=== PATIENT | female | born 1955 | race Caucasian/White ===

== ENCOUNTER 2016-05-22 18:48 | Emergency (ER) | payer OTHER ==
[~2016-05-22] VITALS: Ht 157.5 cm; Wt 102.1 kg
[2016-05-22 18:52] VITALS: BP 126/82
[2016-05-22] MEDS ORDERED: ASPIRIN 81 MG TABLET CHEW PO ONE (19:00)
[2016-05-22 19:44] LABS: HEMOGLOBIN 14.2 g/dL (11.7-16.4)
[2016-05-22 19:54] LABS: BLOOD UREA NITROGEN 11 mg/dL (7-18)
[2016-05-22 19:58] LABS: IS PT STATUS REG ER OR PRE ER? YES
[2016-05-22] MEDS ORDERED: ATOR40TA78 PO (20:12)
[2016-05-22] MEDS ORDERED: ASPI-496 PO (20:12)
[2016-05-22] MEDS ORDERED: SOY1TABL2 PO (20:12)
[2016-05-22] MEDS ORDERED: FLUO20TA25 PO (20:12)
[2016-05-22] MEDS ORDERED: PANT40TA5 PO (20:12)
[2016-05-22] MEDS ORDERED: ASPIRIN 81 MG TABLET CHEW ONE (21:00)
== END 2016-05-22 22:17 | disposition home or self-care (01) ==
LOC: ED 21:44
DX: R07.89 Other chest pain (principal)
CPT/HCPCS: 36415; 71010; 80048; 82040; 83880; 84484; 85025; 85379; 93005

== ENCOUNTER → 2018-05-05 | Outpatient (CLI) | payer OTHER ==
[~2018-05-05] MED LIST: ASPI-496 PO; ATOR40TA78 PO; FENTANYL PF 100 MCG/2ML ONE; FLUMAZENIL 0.1 MG/1 ML, 5ML ONE; FLUO20TA25 PO; MIDAZOLAM 1 MG/ML, 5ML ONE; NALOXONE 1 MG/ML, 2ML ONE; PANT40TA5 PO; SOY1TABL2 PO
== END | disposition home or self-care (01) ==
LOC: RAD 07:41
PROVIDERS: ATTEND Orthopaedic Surgery
DX: M75.121 Complete rotator cuff tear or rupture of right shoulder, not specified as traumatic (principal); M75.122 Complete rotator cuff tear or rupture of left shoulder, not specified as traumatic; M75.52 Bursitis of left shoulder; M19.012 Primary osteoarthritis, left shoulder; M62.58 Muscle wasting and atrophy, not elsewhere classified, other site; Z87.891 Personal history of nicotine dependence
CPT/HCPCS: 73221; 99156; 99157; J2250; J3010; J2310

== ENCOUNTER → 2019-08-17 | Outpatient (CLI) | payer MEDICARE ==
[~2019-08-17] MED LIST changes: +ALEN70TA6 PO; +BIOTIN PO; +CHOL10003 PO; -FENTANYL PF 100 MCG/2ML ONE; -FLUMAZENIL 0.1 MG/1 ML, 5ML ONE; -MIDAZOLAM 1 MG/ML, 5ML ONE; -NALOXONE 1 MG/ML, 2ML ONE; +NAPR220C2 PO; +VITAMIN B12 PO; +VITAMIN B2 PO
== END | disposition home or self-care (01) ==
LOC: STAR 10:29
PROVIDERS: ATTEND Orthopaedic Surgery
DX: Z01.818 Encounter for other preprocedural examination (principal); M17.12 Unilateral primary osteoarthritis, left knee; I45.10 Unspecified right bundle-branch block; R94.31 Abnormal electrocardiogram [ECG] [EKG]
CPT/HCPCS: 87081; 87147; 93005

== ENCOUNTER 2019-08-24 06:54 | Observation (INO) | payer MEDICARE ==
[~2019-08-24] VITALS: Ht 157.5 cm; Wt 88.6 kg
[~2019-08-24 06:54] MED LIST changes: +BUPIVACAINE/PF-EPI 0.5% 1:200K ONE; +TRANEXAMIC ACID 100 MG/ML, 10ML ONE
[2019-08-24] MEDS ORDERED: LACTATED RINGERS 1,000 ML IV SCH (07:21)
[2019-08-24] MEDS ORDERED: CHLORHEXIDINE 15 ML UDC MM ONE (07:30)
[2019-08-24] MEDS ORDERED: MIDAZOLAM 1 MG/ML, 2ML ONE (08:12)
[2019-08-24] MEDS ORDERED: FENTANYL PF 250 MCG/5ML ONE (08:12)
[2019-08-24] MEDS ORDERED: LIDOCAINE-MPF 2% ,5ML ONE (08:13)
[2019-08-24] MEDS ORDERED: BUPIVACAINE/PF 0.5% ONE (08:13)
[2019-08-24] MEDS ORDERED: PROPOFOL 10 MG/ML, 20ML ONE (08:13)
[2019-08-24] MEDS ORDERED: CEFAZOLIN 1,000 MG ONE (08:13)
[2019-08-24] MEDS ORDERED: ONDANSETRON 2MG/ML, 2ML ONE (08:13)
[2019-08-24] MEDS ORDERED: DEXAMETHASONE 4 MG/ML, 1ML ONE (08:13)
[2019-08-24] MEDS ORDERED: MORPHINE SULFATE 4 MG/ML, 1ML IVPush PRN (09:00)
[2019-08-24] MEDS ORDERED: BISACODYL 10 MG SUPP PR PRN (09:00)
[2019-08-24] MEDS ORDERED: DIPHENHYDRAMINE 50 MG CAPSULE PO PRN (09:00)
[2019-08-24] MEDS ORDERED: ONDANSETRON 4 MG TABLET PO PRN (09:00)
[2019-08-24] MEDS ORDERED: CEFAZOLIN PMX 1GM/50ML 50 ML IVPB SCH (09:00)
[2019-08-24] MEDS: KETOROLAC 30 MG/1 ML IV SCH ×3 (09:00→21:49)
[2019-08-24] MEDS ORDERED: ACETAMINOPHEN 325 MG TABLET PO PRN (10:00)
[2019-08-24] MEDS ORDERED: PROMETHAZINE 25 MG/ML, 1ML IVPush PRN (10:00)
[2019-08-24] MEDS ORDERED: hydrALAzine 20 MG/ML, 1ML IV PRN (10:00)
[2019-08-24] MEDS ORDERED: HYDROmorphone 1 MG/ML, 1ML INJ IVPush PRN (10:00)
[2019-08-24] MEDS ORDERED: ALBUTEROL SULFATE 2.5 MG/3 ML NPPB PRN (10:00)
[2019-08-24] MEDS ORDERED: OXYcodone 5 MG/5 ML ORAL.SOL UDC PO PRN (10:00)
[2019-08-24] MEDS ORDERED: LORazepam 2 MG/ML, 1ML IVPush PRN (10:00)
[2019-08-24] MEDS ORDERED: MEPERIDINE/PF 25MG/0.5ML IVPush PRN (10:00)
[2019-08-24] MEDS ORDERED: LABETALOL 5MG/ML, 20ML IV PRN (10:00)
[2019-08-24] MEDS: D5%-0.45% NACL 1,000 ML IV SCH ×3 (10:40→15:28)
[2019-08-24] MEDS ORDERED: ACETAMINOPHEN 650 MG/20.3 ML UDC ONE (10:49)
[2019-08-24] MEDS ORDERED: FENTANYL PF 100 MCG/2ML ONE ×3 (10:49→11:27)
[2019-08-24] MEDS ORDERED: OXYcodone 5 MG/5 ML ORAL.SOL UDC ONE (10:49)
[2019-08-24] MEDS ORDERED: TRANEXAMIC ACID 1,000 MG in SODIUM CHLORIDE 0.9% 100 ML IV ONE (11:00)
[2019-08-24] MEDS: FENTANYL PF 100 MCG/2ML IV PRN ×6 (11:00→11:35)
[2019-08-24 13:55] VITALS: BP 126/79
[2019-08-24] MEDS: DOCUSATE 100 MG CAPSULE PO SCH ×2 (14:29→21:39)
[2019-08-24] MEDS: ACETAMINOPHEN 500 MG TABLET PO SCH ×3 (14:30→21:40)
[2019-08-24] MEDS: OXYcodone IR 5MG TABLET PO PRN ×2 (14:37→21:40)
[2019-08-24] MEDS: CEFAZOLIN PMX 1GM/50ML 50 ML IVPB SCH (16:59)
[2019-08-24 19:13] VITALS: BP 120/75
[2019-08-25 00:14] VITALS: BP 119/73
[2019-08-25] MEDS: CEFAZOLIN PMX 1GM/50ML 50 ML IVPB SCH (00:58)
[2019-08-25] MEDS: OXYcodone IR 5MG TABLET PO PRN ×3 (02:04→10:28)
[2019-08-25] MEDS: ACETAMINOPHEN 500 MG TABLET PO SCH ×2 (03:00→08:59)
[2019-08-25 03:41] VITALS: BP 105/60
[2019-08-25] MEDS: ASPIRIN 325 MG TABLET PO SCH ×2 (06:27→08:59)
[2019-08-25 06:50] VITALS: BP 90/50
[2019-08-25] MEDS: DOCUSATE 100 MG CAPSULE PO SCH (08:59)
[2019-08-25] MEDS: D5%-0.45% NACL 1,000 ML IV SCH (09:01)
== END 2019-08-25 11:25 | disposition home or self-care (01) ==
LOC: OUT 06:54 → ORIP 09:27 → 4NE 12:09 → DCLOUNGE 08-25 11:21
PROVIDERS: ADMIT Orthopaedic Surgery; ATTEND Orthopaedic Surgery
DX: M17.12 Unilateral primary osteoarthritis, left knee (principal); M21.00 Valgus deformity, not elsewhere classified, unspecified site; K21.9 Gastro-esophageal reflux disease without esophagitis; E78.5 Hyperlipidemia, unspecified; G47.33 Obstructive sleep apnea (adult) (pediatric); F32.9 Major depressive disorder, single episode, unspecified; E66.9 Obesity, unspecified; Z87.891 Personal history of nicotine dependence; Z90.710 Acquired absence of both cervix and uterus; Z79.82 Long term (current) use of aspirin; Z79.899 Other long term (current) drug therapy
CPT/HCPCS: 27447; 36415; 73560; 87635; 96365; 96366; 96375; 96376; 97110; 97116; 97162; 97530; C1713; C1776; G0378; J0690; J1100; J1885; J2250; J2405; J2704; J3010; J3490; J7120; S0020